=== PATIENT | female | born 1980 | race Caucasian/White ===

== ENCOUNTER 2016-10-17 09:41 | Inpatient (IN) | payer BC ==
[~2016-10-17] VITALS: Ht 162.6 cm; Wt 82.6 kg
--- NOTE | 2016-10-17 09:59 | EKG ---
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
[2016-10-17] MEDS: NITROGLYCERIN SUBLINGUAL 0.4 MG BOTTLE OF 25. SL PRN ×2 (10:30→10:44)
[2016-10-17 10:59] LABS: BILIRUBIN,URINE NEGATIVE (NEG); GLUCOSE,URINE NEGATIVE (NEG); NITRITE,URINE NEGATIVE (NEG); PH,URINE 7.5; PROTEIN,URINE NEGATIVE (NEG-TRACE); UROBILINOGEN,URINE 0.2 mg/dL (0.2 mg/dL)
[2016-10-17 11:02] LABS: BASO % 1 % (0-3); EOS % 2 % (0-3); HEMOGLOBIN 13.9 g/dL (12.0-15.5); LYMPH # 1.8 x10^3/uL (1.0-4.8); LYMPH % 29 % (24-48); MEAN CORPUSCULAR HEMOGLOBIN 28 pg (25-35); MEAN CORPUSCULAR HGB CONC 33 g/dL (31-37); MEAN CORPUSCULAR VOLUME 84 fL (79-100); MONO % 7 % (0-9); NEUT % 61 % (31-73); PLATELET COUNT 228 x10^3/uL (140-400); RED BLOOD COUNT 4.98 x10^6/uL (3.50-5.40); RED CELL DISTRIBUTION WIDTH 13.4 % (11.5-14.5); WHITE BLOOD COUNT 6.1 x10^3/uL (4.0-11.0)
[2016-10-17 11:05] LABS: BARBITURATES NEG (NEG); BENZODIAZEPINES NEG (NEG); CANNABINOIDS NEG (NEG); COCAINE NEG (NEG); METHADONE NEG (NEG); OPIATES NEG (NEG); PHENCYCLIDINE NEG (NEG)
--- NOTE | 2016-10-17 11:11 | RAD ---
Chest, 2 views, 10/17/2016: History: Chest pain, headache The heart size and pulmonary vascularity are normal. The lungs are clear. There is no evidence of pleural fluid. IMPRESSION: No acute cardiopulmonary abnormality is detected.
[2016-10-17 11:15] LABS: BACTERIA,URINE 0 /HPF (0-FEW); RBC,URINE 0 /HPF (0-2); WBC,URINE 0 /HPF (0-4)
[2016-10-17 11:15] LABS: CALCIUM 8.8 mg/dL (8.5-10.1); CREATININE 0.7 mg/dL (0.6-1.0); GFR 95.2; POTASSIUM 4.1 mmol/L (3.5-5.1)
[2016-10-17 11:22] LABS: ALBUMIN 3.8 g/dL (3.4-5.0); DIRECT BILIRUBIN 0.1 mg/dL (0.0-0.2); TOTAL BILIRUBIN 0.4 mg/dL (0.2-1.0); TOTAL PROTEIN 7.5 g/dL (6.4-8.2)
--- NOTE | 2016-10-17 11:49 | ED.ADGEN ---
Past Medical History Past Medical History: High Cholesterol, Other Additional Past Medical Histor: TMJ causes bad CALLAWAY's. Past Surgical History: Other Additional Past Surgical Histo: Laproscopy. Additional Information: Quit smoking at age 21. Was smoking about 1 PPD at that time. Alcohol Use: Occasionally Drug Use: None Adult General Chief Complaint Chief Complaint: CHEST PAIN HPI HPI Patient is a 36 year old woman, history of TMJ, headache, who presents emergency department from an urgent care clinic with a complaint of chest pain intermittently over the past 2 weeks. Patient states had one to set of chest pain 2 weeks ago, she began experiencing a chest pressure associated with lightheadedness and shortness of breath after going to the store. She states that she stood up from a lying position and felt extremely lightheaded.. She states that last about 15 minutes before resolving, she had some nausea but no vomiting during that time. She states that this pain occurred again this morning , similar in nature, prompting her visit to the urgent care center, where she was referred to the emergency department for additional evaluation. She denies any recent injuries, states that it feels a pressure on her chest, although she does have worsening of the pain with deep inspiration, denies any weakness, numbness or tingling, any injuries, any similar symptoms previously, any travel or surgery, and history of DVT or PE in herself or family members. There is a family history of premature cardiac disease, beginning at age 30. Patient has not taken any medication for pain prior to coming to the ED. Denies any drugs, alcohol or cigarettes. Review of Systems Review of Systems Constitutional: Denies fever or chills. [] Eyes: Denies change in visual acuity. [] HENT: Denies nasal congestion or sore throat. [] Respiratory: Denies cough or shortness of breath. [] Cardiovascular: Anterior chest pain, described as a chest pressure, sharp, is respirophasic. No edema. GI: Denies abdominal pain, nausea, vomiting, bloody stools or diarrhea. [] : Denies dysuria. [] Musculoskeletal: Denies back pain or joint pain. [] Integument: Denies rash. [] Neurologic: Denies headache, focal weakness or sensory changes. [] Endocrine: Denies polyuria or polydipsia. [] Lymphatic: Denies swollen glands. [] Psychiatric: Denies depression or anxiety. [] Current Medications Current Medications Current Medications Medications (Trade) Dose Ordered Sig/Flavio Start Time Stop Time Status Last Admin Dose Admin Nitroglycerin (Nitrostat) 0.4 mg PRN Q5MIN PRN 10/17/16 10:00 10/18/16 09:59 10/17/16 10:44 0.4 MG Allergies Allergies Allergies Coded Allergies Type Severity Reaction Last Updated Verified levofloxacin Allergy Severe SWELLING ON TONGUE 10/17/16 Yes nitrofurantoin Allergy Severe SWELLING ON TONGUE 10/17/16 Yes Sulfa (Sulfonamide Antibiotics) Allergy Intermediate Unknown 10/17/16 Yes adhesive tape Allergy Intermediate SKIN PUFFY IF ON FOR LONG TIME 10/17/16 Yes Physical Exam Physical Exam Constitutional: Well developed, well nourished, no acute distress, non-toxic appearance. [] HENT: Normocephalic, atraumatic, bilateral external ears normal, oropharynx moist, no oral exudates, nose normal. [] Eyes: PERRLA, EOMI, conjunctiva normal, no discharge. [] Neck: Normal range of motion, no tenderness, supple, no stridor. [] Cardiovascular:Heart rate regular rhythm, no murmur [] Lungs & Thorax: Bilateral breath sounds clear to auscultation [] Abdomen: Bowel sounds normal, soft, no tenderness, no masses, no pulsatile masses. [] Skin: Warm, dry, no erythema, no rash. [] Back: No tenderness, no CVA tenderness. [] Extremities: No tenderness, no cyanosis, no clubbing, ROM intact, no edema. [] Neurologic: Alert and oriented X 3, normal motor function, normal sensory function, no focal deficits noted. [] Psychologic: Affect normal, judgement normal, mood normal. [] Current Patient Data Vital Signs Vital Signs Date Time Temp Pulse Resp B/P (MAP) Pulse Ox O2 Delivery O2 Flow Rate FiO2 10/17/16 13:00 78 16 110/68 (82) 99 10/17/16 10:30 Room Air 10/17/16 10:05 98.2 98.2 Lab Values Laboratory Tests Test 10/17/16 10:00 10/17/16 10:40 10/17/16 12:35 Urine Collection Type Void Urine Color Yellow Urine Clarity Clear Urine pH 7.5 Urine Specific [place] 1.010 Urine Protein Negative mg/dL (NEG-TRACE) Urine Glucose (UA) Negative mg/dL (NEG) Urine Ketones (Stick) Negative mg/dL (NEG) Urine Blood Negative (NEG) Urine Nitrite Negative (NEG) Urine Bilirubin Negative (NEG) Urine Urobilinogen Dipstick 0.2 mg/dL (0.2 mg/dL) Urine Leukocyte Esterase Trace (NEG) Urine RBC 0 /HPF (0-2) Urine WBC 0 /HPF (0-4) Urine Bacteria 0 /HPF (0-FEW) Urine Opiates Screen Neg (NEG) Urine Methadone Screen Neg (NEG) Urine Barbiturates Neg (NEG) Urine Phencyclidine Screen Neg (NEG) Urine Amphetamine/Methamphetamine Neg (NEG) Urine Benzodiazepines Screen Neg (NEG) Urine Cocaine Screen Neg (NEG) Urine Cannabinoids Screen Neg (NEG) Urine Ethyl Alcohol Neg (NEG) White Blood Count 6.1 x10^3/uL (4.0-11.0) Red Blood Count 4.98 x10^6/uL (3.50-5.40) Hemoglobin 13.9 g/dL (12.0-15.5) Hematocrit 42.0 % (36.0-47.0) Mean Corpuscular Volume 84 fL (79-100) Mean Corpuscular Hemoglobin 28 pg (25-35) Mean Corpuscular Hemoglobin Concent 33 g/dL (31-37) Red Cell Distribution Width 13.4 % (11.5-14.5) Platelet Count 228 x10^3/uL (140-400) Neutrophils (%) (Auto) 61 % (31-73) Lymphocytes (%) (Auto) 29 % (24-48) Monocytes (%) (Auto) 7 % (0-9) Eosinophils (%) (Auto) 2 % (0-3) Basophils (%) (Auto) 1 % (0-3) Neutrophils # (Auto) 3.7 x10^3uL (1.8-7.7) Lymphocytes # (Auto) 1.8 x10^3/uL (1.0-4.8) Monocytes # (Auto) 0.4 x10^3/uL (0.0-1.1) Eosinophils # (Auto) 0.1 x10^3/uL (0.0-0.7) Basophils # (Auto) 0.0 x10^3/uL (0.0-0.2) Sodium Level 143 mmol/L (136-145) Potassium Level 4.1 mmol/L (3.5-5.1) Chloride Level 106 mmol/L (98-107) Carbon Dioxide Level 29 mmol/L (21-32) Anion Gap 8 (6-14) Blood Urea Nitrogen 11 mg/dL (7-20) Creatinine 0.7 mg/dL (0.6-1.0) Estimated GFR (Cockcroft-Gault) 95.2 Glucose Level 87 mg/dL (70-99) Calcium Level 8.8 mg/dL (8.5-10.1) Total Bilirubin 0.4 mg/dL (0.2-1.0) Direct Bilirubin 0.1 mg/dL (0.0-0.2) Aspartate Amino Transferase (AST) 16 U/L (15-37) Alanine Aminotransferase (ALT) 23 U/L (14-59) Alkaline Phosphatase 59 U/L (46-116) Troponin I Quantitative < 0.017 ng/mL (0.000-0.055) ZT-Gnb-L-Type Natriuretic Peptide 32 pg/mL (0-124) Total Protein 7.5 g/dL (6.4-8.2) Albumin 3.8 g/dL (3.4-5.0) Lipase 101 U/L (73-393) D-Dimer (Guerita) < 0.27 ug/mlFEU Laboratory Tests 10/17/16 10:40 Laboratory Tests 10/17/16 10:40 EKG EKG EC: Sinus rhythm, heart rate 76 beats minute, QTC of 423, [place] of 148, QRS of 84, no ST elevations or depressions, no evidence of acute ST abnormalities. As interpreted by me. [] Radiology/Procedures Radiology/Procedures [][facility] [address] [place] [address] IMAGING REPORT Signed PATIENT: MARBIN MICHAUD ACCOUNT: [id number] : 1980 LOCATION: ER AGE: 36 SEX: F EXAM STATUS: REG ER ORD. PHYSICIAN: KEM DESOUZA DO REASON: CP and headache x 1 week PROCEDURE: CHEST PA & LATERAL Chest, 2 views, 10/17/2016: History: Chest pain, headache The heart size and pulmonary vascularity are normal. The lungs are clear. There is no evidence of pleural fluid. IMPRESSION: No acute cardiopulmonary abnormality is detected. DICTATED and SIGNED BY: CALLI FISHER MD DATE: 10/17/16 1108 CC: GRIFFIN WALSH; KEM DESOUZA DO ~ Course & Med Decision Making Course & Med Decision Making Pertinent Labs and Imaging studies reviewed. (See chart for details) Patient is PERC give with a negative d-dimer, her additional imaging and laboratory studies in the emergency department, along with her ECG did not reveal evidence of acute abnormality, however based with her family history of heart disease in her father age 30, with multiple MIs, and patient's recurrent symptoms, after discussion patient is agreeable for a cardiac rule out and evaluation by cardiology. Repeat ECG is unchanged. Findings as above discussed with Dr. Bahena of internal medicine, patient accepted to her service as a full admission for a chest pain rule out ACS, with consultation placed for cardiology. Patient resting comfortably, sinus rhythm on the monitor, transfer to floor without issue. Dragon Disclaimer Dragon Disclaimer This electronic medical record was generated, in whole or in part, using a voice recognition dictation system. Departure Impression: Primary Impression: Chest pain Disposition: ADMITTED INPATIENT Admitting Physician: Javier Bahena Condition: IMPROVED KEM DESOUZA DO October 17, 2016 11:49
[2016-10-17] MEDS ORDERED: NITROGLYCERIN SUBLINGUAL 0.4 MG BOTTLE OF 25. SL PRN (14:00)
[2016-10-17] MEDS ORDERED: ACETAMINOPHEN 325 MG TABLET. PO PRN ×2 (14:00→15:15)
[2016-10-17] MEDS ORDERED: ONDANSETRON PF 4 MG/2 ML VIAL. IV PRN ×2 (14:00→15:15)
--- NOTE | 2016-10-17 14:50 | PDOC2 ---
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 Reports that his started about 2 weeks ago suddenly describing it as sharp pain that starts from left chest then spreads across the lateral side of her chest. With this she could not take a deep breath and actually hurts more when she does it. With the pain she felt nauseated and also had some episodes of lightheadedness. After which this has been intermittent and became worse again last night when the pain woke her up close to midnight. She has not been able to rest since then. She did felt SOA at that time. She finally decided to come in to urgent care then was recommended to come to ED and be evaluated further. She still has chest discomfort which mainly most severe to LUQ of her left breast when palpated and also her left shoulder ROM is limited with the pain. Her pain did get a little better after NTG but still remains. She does have occasional heartburn but repeatedly points out that this is not her usual heartburn. Presently she does not take any routine medications. She denies any CAD, VTE, falls, MVA or any recent injury. No prior weekend house cleaning. No significant neck issues. However she does have strong family hx of premature CAD. She is also positive for PIH, HLP noted during her . Denies any routine NSAID use. Again she still has left chest pain and this is reproducible with palpation, AROM to left shoulder and positional changes. PAST MEDICAL HISTORY Cardiovascular: HTN (PIH), Hyperlipidemia (during her ) CENTRAL NERVOUS SYSTEM: Other (No pertinent history) GI: GERD Heme/Onc: No pertinent hx Hepatobiliary: No pertinent hx Psych: No pertinent hx Musculoskeletal: Other (left shoulder pain) Rheumatologic: No pertinent hx Infectious disease: No pertinent hx ENT: Allergic Rhinitis, Other (TMJ; subconjucntival hemorrhage) Renal/: UTI, Other (ovarian cysts) Endocrine: No pertinent hx Dermatology: No pertinent hx Grav: 2 Para: 2 PAST SURGICAL HISTORY Past Surgical History: Other (right foot surgery; laparoscopic surgery of the ovaries due to cystic issues) FAMILY HISTORY Family History: Coronary Artery Disease (father in his 30s then SCD at 50s also her father's dad young from CAD) SOCIAL HISTORY Smoke: No (4pk yr quit at 21 yo) ALCOHOL: none Drugs: None Lives: with Family CURRENT MEDICATIONS CURRENT MEDICATIONS Current Medications Medications (Trade) Dose Ordered Sig/Flavio Route PRN Reason Start Time Stop Time Status Last Admin Dose Admin Nitroglycerin (Nitrostat) 0.4 mg PRN Q5MIN PRN SL CP RATING > 1/10 10/17/16 10:00 10/18/16 09:59 10/17/16 10:44 ALLERGIES ALLERGIES: Coded Allergies: levofloxacin (Verified Allergy, Severe, SWELLING ON TONGUE, 10/17/16) nitrofurantoin (Verified Allergy, Severe, SWELLING ON TONGUE, 10/17/16) Sulfa (Sulfonamide Antibiotics) (Verified Allergy, Intermediate, Unknown, 10/17/16) adhesive tape (Verified Allergy, Intermediate, SKIN PUFFY IF ON FOR LONG TIME, 10/17/16) BAND AID ROS Review of System 14 point ROS evaluated with pertinent positives noted per HPI PHYSICAL EXAM General: Alert, Oriented X3, Cooperative, mild distress HEENT: Atraumatic, Mucous membr. moist/pink Lungs: Clear to auscultation, Normal air movement Heart: Regular rate (SR), Normal S1, Normal S2, No murmurs Abdomen: Soft, No tenderness Extremities: No cyanosis, No edema Skin: No breakdown, No significant lesion Neuro: Normal speech, Sensation intact Psych/Mental Status: Mental status NL, Mood NL MUSCULOSKELETAL: Other (limited ROM to left shoulder) VITALS VITALS Vital Signs Date Time Temp Pulse Resp B/P (MAP) Pulse Ox O2 Delivery O2 Flow Rate FiO2 10/17/16 14:00 80 14 113/59 (77) 98 10/17/16 10:30 Room Air 10/17/16 10:05 98.2 98.2 LABS Lab: Laboratory Tests Test 10/17/16 10:00 10/17/16 10:40 10/17/16 12:35 Urine Collection Type Void Urine Color Yellow Urine Clarity Clear Urine pH 7.5 Urine Specific [place] 1.010 Urine Protein Negative mg/dL (NEG-TRACE) Urine Glucose (UA) Negative mg/dL (NEG) Urine Ketones (Stick) Negative mg/dL (NEG) Urine Blood Negative (NEG) Urine Nitrite Negative (NEG) Urine Bilirubin Negative (NEG) Urine Urobilinogen Dipstick 0.2 mg/dL (0.2 mg/dL) Urine Leukocyte Esterase Trace (NEG) Urine RBC 0 /HPF (0-2) Urine WBC 0 /HPF (0-4) Urine Bacteria 0 /HPF (0-FEW) Urine Opiates Screen Neg (NEG) Urine Methadone Screen Neg (NEG) Urine Barbiturates Neg (NEG) Urine Phencyclidine Screen Neg (NEG) Urine Amphetamine/Methamphetamine Neg (NEG) Urine Benzodiazepines Screen Neg (NEG) Urine Cocaine Screen Neg (NEG) Urine Cannabinoids Screen Neg (NEG) Urine Ethyl Alcohol Neg (NEG) White Blood Count 6.1 x10^3/uL (4.0-11.0) Red Blood Count 4.98 x10^6/uL (3.50-5.40) Hemoglobin 13.9 g/dL (12.0-15.5) Hematocrit 42.0 % (36.0-47.0) Mean Corpuscular Volume 84 fL (79-100) Mean Corpuscular Hemoglobin 28 pg (25-35) Mean Corpuscular Hemoglobin Concent 33 g/dL (31-37) Red Cell Distribution Width 13.4 % (11.5-14.5) Platelet Count 228 x10^3/uL (140-400) Neutrophils (%) (Auto) 61 % (31-73) Lymphocytes (%) (Auto) 29 % (24-48) Monocytes (%) (Auto) 7 % (0-9) Eosinophils (%) (Auto) 2 % (0-3) Basophils (%) (Auto) 1 % (0-3) Neutrophils # (Auto) 3.7 x10^3uL (1.8-7.7) Lymphocytes # (Auto) 1.8 x10^3/uL (1.0-4.8) Monocytes # (Auto) 0.4 x10^3/uL (0.0-1.1) Eosinophils # (Auto) 0.1 x10^3/uL (0.0-0.7) Basophils # (Auto) 0.0 x10^3/uL (0.0-0.2) Sodium Level 143 mmol/L (136-145) Potassium Level 4.1 mmol/L (3.5-5.1) Chloride Level 106 mmol/L (98-107) Carbon Dioxide Level 29 mmol/L (21-32) Anion Gap 8 (6-14) Blood Urea Nitrogen 11 mg/dL (7-20) Creatinine 0.7 mg/dL (0.6-1.0) Estimated GFR (Cockcroft-Gault) 95.2 Glucose Level 87 mg/dL (70-99) Calcium Level 8.8 mg/dL (8.5-10.1) Total Bilirubin 0.4 mg/dL (0.2-1.0) Direct Bilirubin 0.1 mg/dL (0.0-0.2) Aspartate Amino Transf (AST/SGOT) 16 U/L (15-37) Alanine Aminotransferase (ALT/SGPT) 23 U/L (14-59) Alkaline Phosphatase 59 U/L (46-116) Troponin I Quantitative < 0.017 ng/mL (0.000-0.055) DI-Fwg-M-Type Natriuretic Peptide 32 pg/mL (0-124) Total Protein 7.5 g/dL (6.4-8.2) Albumin 3.8 g/dL (3.4-5.0) Lipase 101 U/L (73-393) D-Dimer (Guerita) < 0.27 ug/mlFEU ASSESSMENT/PLAN ASSESSMENT/PLAN 1. Atypical chest pain: initial troponin normal. EKG SR without acute changes. Reproducible. Likely MSK. Tox screen neg and lipase/DDIMER normal. 2. Strong family hx of premature CAD: father at 30s and grandfather with father SCD at 50s 3. HLP: noted about 2 yrs ago, unmedicated 4. Hx of PIH: from her 2nd , no gestational DM. 5. Past tobaccoism: quit 15 yrs ago 4 pk yr. 6. Hx of GERD Recommendations 1. Lidocaine patch to site. Start on PPI 2. Urine preg testing. lipid panel, and CK 3. Continue to trend troponin and will repeat EKG in AM. 4. Baseline TTE 5. NPO at ND, await diagnostics and will note if further cardiac workup is warranted. Problems: SAMIRA BARRY MD 10/17/16 3032: CARDIAC CONSULT ALLERGIES ALLERGIES: Coded Allergies: levofloxacin (Verified Allergy, Severe, SWELLING ON TONGUE, 10/17/16) nitrofurantoin (Verified Allergy, Severe, SWELLING ON TONGUE, 10/17/16) Sulfa (Sulfonamide Antibiotics) (Verified Allergy, Intermediate, Unknown, 10/17/16) adhesive tape (Verified Allergy, Intermediate, SKIN PUFFY IF ON FOR LONG TIME, 10/17/16) BAND AID ASSESSMENT/PLAN ASSESSMENT/PLAN Pt. seen and examined. 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 36 yo woman with family hx of cad, current symptoms unlikely to be cardiac. Possible pleuritis. Will plan for treadmill stress tomorrow. Thanks for consult. Problems: MINOR BEAUCHAMP APRN October 17, 2016 14:50 SAMIRA BARRY MD October 17, 2016 22:18
--- NOTE | 2016-10-17 14:54 | PDOC1 ---
History and Physical Date of Admission Date of Admission Identification/Chief Complaint Chief Complaint chest pain Problems: Source Source: Chart review, Patient History of Present Illness History of Present Illness HPI Patient is a 36 year old woman, history of TMJ, headache, comes for chest pain for 1 week. She was doing some moderate exercise in the gym 1 week ago. She started to feel some left sharp pain, no radiation, sharp, with sob after back from a grocery 1 week ago, with some nausea. then she has had it intermittently. She woke up last night with left pressure chest pain, sob, severe, with mild + tenderness, came to ER. No fever, chills, cough, vomiting, denies injury, saying acid reflux, but said this is different. + family history of CAD. Past Medical History Past Medical History none Past Surgical History Past Surgical History: No pertinent history Family History Family History: Coronary Artery Disease Social History Smoke: Quit (quit at 21yo) ALCOHOL: social Drugs: None Current Medications Current Medications Current Medications Medications (Trade) Dose Ordered Sig/Flavio Start Time Stop Time Status Last Admin Dose Admin Acetaminophen (Tylenol) 650 mg PRN Q4HRS PRN 10/17/16 14:00 10/18/16 13:59 Nitroglycerin (Nitrostat) 0.4 mg PRN Q5MIN PRN 10/17/16 14:00 10/18/16 13:59 Ondansetron HCl (Zofran) 4 mg PRN Q8HRS PRN 10/17/16 14:00 10/18/16 13:59 Allergies Allergies Allergies Coded Allergies Type Severity Reaction Last Updated Verified levofloxacin Allergy Severe SWELLING ON TONGUE 10/17/16 Yes nitrofurantoin Allergy Severe SWELLING ON TONGUE 10/17/16 Yes Sulfa (Sulfonamide Antibiotics) Allergy Intermediate Unknown 10/17/16 Yes adhesive tape Allergy Intermediate SKIN PUFFY IF ON FOR LONG TIME 10/17/16 Yes ROS Review of System CONSTITUTIONAL: No fever or chills EYES: No recent changes SKIN: No rash or itching CARDIOVASCULAR: No chest pain, syncope, palpitations, or edema RESPIRATORY: No SOB or cough GASTROINTESTINAL: No nausea, vomiting or abdominal pain NEUROLOGICAL: No headaches or weakness ENDOCRINE: No cold or heat intolerance GENITOURINARY: No urgency or frequency of urination MUSCULOSKELETAL: No back pain or joint pain LYMPHATICS: No enlarged lymph nodes PSYCHIATRIC: No anxiety or depression Physical Exam Physical Exam GEN.: No apparent distress. Alert and oriented. HEENT: Head is normocephalic, atraumatic NECK: Supple. LUNGS: Clear to auscultation. mild chest wall tenderness. HEART: RRR, S1, S2 present. Peripheral pulses intact ABDOMEN: Soft, nontender. Positive bowel sounds. EXTREMITIES: Without any cyanosis. NEUROLOGIC: Normal speech, normal tone PSYCHIATRIC: Normal affect, normal mood. SKIN: No ulcerations Vitals Vitals Vital Signs Date Time Temp Pulse Resp B/P (MAP) Pulse Ox O2 Delivery O2 Flow Rate FiO2 10/17/16 14:00 80 14 113/59 (77) 98 10/17/16 10:30 Room Air 10/17/16 10:05 98.2 98.2 Labs Labs Laboratory Tests Test 10/17/16 10:00 10/17/16 10:40 10/17/16 12:35 Urine Collection Type Void Urine Color Yellow Urine Clarity Clear Urine pH 7.5 Urine Specific [place] 1.010 Urine Protein Negative mg/dL (NEG-TRACE) Urine Glucose (UA) Negative mg/dL (NEG) Urine Ketones (Stick) Negative mg/dL (NEG) Urine Blood Negative (NEG) Urine Nitrite Negative (NEG) Urine Bilirubin Negative (NEG) Urine Urobilinogen Dipstick 0.2 mg/dL (0.2 mg/dL) Urine Leukocyte Esterase Trace (NEG) Urine RBC 0 /HPF (0-2) Urine WBC 0 /HPF (0-4) Urine Bacteria 0 /HPF (0-FEW) Urine Opiates Screen Neg (NEG) Urine Methadone Screen Neg (NEG) Urine Barbiturates Neg (NEG) Urine Phencyclidine Screen Neg (NEG) Urine Amphetamine/Methamphetamine Neg (NEG) Urine Benzodiazepines Screen Neg (NEG) Urine Cocaine Screen Neg (NEG) Urine Cannabinoids Screen Neg (NEG) Urine Ethyl Alcohol Neg (NEG) White Blood Count 6.1 x10^3/uL (4.0-11.0) Red Blood Count 4.98 x10^6/uL (3.50-5.40) Hemoglobin 13.9 g/dL (12.0-15.5) Hematocrit 42.0 % (36.0-47.0) Mean Corpuscular Volume 84 fL (79-100) Mean Corpuscular Hemoglobin 28 pg (25-35) Mean Corpuscular Hemoglobin Concent 33 g/dL (31-37) Red Cell Distribution Width 13.4 % (11.5-14.5) Platelet Count 228 x10^3/uL (140-400) Neutrophils (%) (Auto) 61 % (31-73) Lymphocytes (%) (Auto) 29 % (24-48) Monocytes (%) (Auto) 7 % (0-9) Eosinophils (%) (Auto) 2 % (0-3) Basophils (%) (Auto) 1 % (0-3) Neutrophils # (Auto) 3.7 x10^3uL (1.8-7.7) Lymphocytes # (Auto) 1.8 x10^3/uL (1.0-4.8) Monocytes # (Auto) 0.4 x10^3/uL (0.0-1.1) Eosinophils # (Auto) 0.1 x10^3/uL (0.0-0.7) Basophils # (Auto) 0.0 x10^3/uL (0.0-0.2) Sodium Level 143 mmol/L (136-145) Potassium Level 4.1 mmol/L (3.5-5.1) Chloride Level 106 mmol/L (98-107) Carbon Dioxide Level 29 mmol/L (21-32) Anion Gap 8 (6-14) Blood Urea Nitrogen 11 mg/dL (7-20) Creatinine 0.7 mg/dL (0.6-1.0) Estimated GFR (Cockcroft-Gault) 95.2 Glucose Level 87 mg/dL (70-99) Calcium Level 8.8 mg/dL (8.5-10.1) Total Bilirubin 0.4 mg/dL (0.2-1.0) Direct Bilirubin 0.1 mg/dL (0.0-0.2) Aspartate Amino Transf (AST/SGOT) 16 U/L (15-37) Alanine Aminotransferase (ALT/SGPT) 23 U/L (14-59) Alkaline Phosphatase 59 U/L (46-116) Troponin I Quantitative < 0.017 ng/mL (0.000-0.055) YO-Gkv-T-Type Natriuretic Peptide 32 pg/mL (0-124) Total Protein 7.5 g/dL (6.4-8.2) Albumin 3.8 g/dL (3.4-5.0) Lipase 101 U/L (73-393) D-Dimer (Guerita) < 0.27 ug/mlFEU Laboratory Tests Test 10/17/16 10:00 10/17/16 10:40 10/17/16 12:35 Urine Collection Type Void Urine Color Yellow Urine Clarity Clear Urine pH 7.5 Urine Specific [place] 1.010 Urine Protein Negative mg/dL (NEG-TRACE) Urine Glucose (UA) Negative mg/dL (NEG) Urine Ketones (Stick) Negative mg/dL (NEG) Urine Blood Negative (NEG) Urine Nitrite Negative (NEG) Urine Bilirubin Negative (NEG) Urine Urobilinogen Dipstick 0.2 mg/dL (0.2 mg/dL) Urine Leukocyte Esterase Trace (NEG) Urine RBC 0 /HPF (0-2) Urine WBC 0 /HPF (0-4) Urine Bacteria 0 /HPF (0-FEW) Urine Opiates Screen Neg (NEG) Urine Methadone Screen Neg (NEG) Urine Barbiturates Neg (NEG) Urine Phencyclidine Screen Neg (NEG) Urine Amphetamine/Methamphetamine Neg (NEG) Urine Benzodiazepines Screen Neg (NEG) Urine Cocaine Screen Neg (NEG) Urine Cannabinoids Screen Neg (NEG) Urine Ethyl Alcohol Neg (NEG) White Blood Count 6.1 x10^3/uL (4.0-11.0) Red Blood Count 4.98 x10^6/uL (3.50-5.40) Hemoglobin 13.9 g/dL (12.0-15.5) Hematocrit 42.0 % (36.0-47.0) Mean Corpuscular Volume 84 fL (79-100) Mean Corpuscular Hemoglobin 28 pg (25-35) Mean Corpuscular Hemoglobin Concent 33 g/dL (31-37) Red Cell Distribution Width 13.4 % (11.5-14.5) Platelet Count 228 x10^3/uL (140-400) Neutrophils (%) (Auto) 61 % (31-73) Lymphocytes (%) (Auto) 29 % (24-48) Monocytes (%) (Auto) 7 % (0-9) Eosinophils (%) (Auto) 2 % (0-3) Basophils (%) (Auto) 1 % (0-3) Neutrophils # (Auto) 3.7 x10^3uL (1.8-7.7) Lymphocytes # (Auto) 1.8 x10^3/uL (1.0-4.8) Monocytes # (Auto) 0.4 x10^3/uL (0.0-1.1) Eosinophils # (Auto) 0.1 x10^3/uL (0.0-0.7) Basophils # (Auto) 0.0 x10^3/uL (0.0-0.2) Sodium Level 143 mmol/L (136-145) Potassium Level 4.1 mmol/L (3.5-5.1) Chloride Level 106 mmol/L (98-107) Carbon Dioxide Level 29 mmol/L (21-32) Anion Gap 8 (6-14) Blood Urea Nitrogen 11 mg/dL (7-20) Creatinine 0.7 mg/dL (0.6-1.0) Estimated GFR (Cockcroft-Gault) 95.2 Glucose Level 87 mg/dL (70-99) Calcium Level 8.8 mg/dL (8.5-10.1) Total Bilirubin 0.4 mg/dL (0.2-1.0) Direct Bilirubin 0.1 mg/dL (0.0-0.2) Aspartate Amino Transf (AST/SGOT) 16 U/L (15-37) Alanine Aminotransferase (ALT/SGPT) 23 U/L (14-59) Alkaline Phosphatase 59 U/L (46-116) Troponin I Quantitative < 0.017 ng/mL (0.000-0.055) AV-Vtm-J-Type Natriuretic Peptide 32 pg/mL (0-124) Total Protein 7.5 g/dL (6.4-8.2) Albumin 3.8 g/dL (3.4-5.0) Lipase 101 U/L (73-393) D-Dimer (Guerita) < 0.27 ug/mlFEU VTE Prophylaxis Ordered VTE Prophylaxis Devices: Yes VTE Pharmacological Prophylaxi: Yes Assessment/Plan Assessment/Plan 1. chest pain, need to rule out unstable angina vs. muscular pain 2. ?HLD 3. obesity plan; card consult check tsh, lipid panel. cycle CE echo dvt ppx explained to family at bedside about the possible reasons for chest pain. MAIKEL KUNZ MD October 17, 2016 14:53
[2016-10-17] MEDS ORDERED: traMADol 50 MG TABLET PO PRN (15:15)
[2016-10-17 15:50] VITALS: BP 112/71
--- NOTE | 2016-10-17 16:47 | CARD ---
APPROVED REPORT EXAM: Two-dimensional and M-mode echocardiogram with Doppler and color Doppler. Other Information Quality : GoodHR: 81bpm Rhythm : NSR INDICATION Chest Pain 2D DIMENSIONS RVDd2.1 (2.9-3.5cm)Left Atrium(2D)3.3 (1.6-4.0cm) IVSd0.7 (0.7-1.1cm)Aortic Root(2D)2.7 (2.0-3.7cm) LVDd4.9 (3.9-5.9cm)LVOT Diameter2.3 (1.8-2.4cm) PWd0.8 (0.7-1.1cm)LVDs3.3 (2.5-4.0cm) FS (%) 32.7 %SV68.5 ml LVEF(%)60.9 (>50%) Aortic Valve AoV Peak Randall.127.5cm/sAoV VTI24.3cm AO Peak GR.6.5mmHgLVOT Peak Randall.97.9cm/s AO Mean GR.4mmHgAVA (VMAX)3.21cm2 Mitral Valve MV E Kftrtorr40.1cm/sMV E Peak Gr.3mmHg MV DECEL [id number] A Tzmigdwp58.4cm/s MV E Mean Gr.1mmHgE/A Ratio1.4 MV A [id number] Pulmonary Valve PV Peak Hvoelsgu95.8cm/s Pulmonary Vein S1 Slzijksb40.1cm/sD2 Ehneujbm28.3cm/s PVa [id number] LEFT VENTRICLE The left ventricle is normal size. There is normal left ventricular wall thickness. The left ventricu lar systolic function is normal and the ejection fraction is within normal range. The Ejection Fracti on is 55-60%. There is normal LV segmental wall motion. The left ventricular diastolic function and f illing is normal for age. RIGHT VENTRICLE The right ventricle is normal size. There is normal right ventricular wall thickness. The right ventr icular systolic function is normal. ATRIA The left atrium size is normal. The right atrium size is normal. The interatrial septum is intact wit h no evidence for an atrial septal defect or patent foramen ovale as noted on 2-D or Doppler imaging. AORTIC VALVE The aortic valve is normal in structure and function. Doppler and Color Flow revealed no significant aortic regurgitation. There is no significant aortic valvular stenosis. MITRAL VALVE The mitral valve is normal in structure and function. There is no evidence of mitral valve prolapse. There is no mitral valve stenosis. Doppler and Color Flow revealed trace mitral regurgitation. TRICUSPID VALVE Doppler and Color Flow revealed no tricuspid valve regurgitation noted. Unable to determine pulmonary artery pressure at exam time. PULMONIC VALVE Doppler and Color Flow revealed trace pulmonic valvular regurgitation. There is no pulmonic valvular stenosis. GREAT VESSELS The aortic root is normal in size. The ascending aorta is normal in size. The pulmonary artery is nor mal. The IVC is normal in size and collapses >50% with inspiration. PERICARDIAL EFFUSION There is no evidence of significant pericardial effusion. Critical Notification Critical Value: No <Conclusion> The left ventricular systolic function is normal and the ejection fraction is within normal range. Th e Ejection Fraction is 55-60%. There is normal LV segmental wall motion.
[2016-10-17] MEDS: LIDOCAINE (700MG/PATCH) PATCH. TD SCH (17:43)
[2016-10-17] MEDS: ENOXAPARIN 40 MG/0.4 ML SYRINGE. SQ SCH (17:43)
--- NOTE | 2016-10-17 19:35 | ACF ---
Admission Forms Criteria CARDIOLOGY GRG Clinical Indications for Admission to Inpatient Care ( Place 'X' for any and all applicable criteria): Hospital admission is needed for appropriate care of the patient because of ANY ONE of the following (1): [ ] I. Hemodynamic instability as indicated by ALL of the following (1)(2)(3) (4)(5) [ ]a) Vital signs or other findings not as expected for chronic patient condition or baseline [ ]b) Instability indicated by ANY ONE of the following: [ ]i) Hypotension [ ]ii) Symptomatic Tachycardia unresponsive to treatment ( e.g., analgesia, fluids, sedation as indicated) [ ]iii) Inadequate perfusion indicated by ANY ONE of the following: [ ] 1) Lactic acidosis (> 2 mmol/L) [ ] 2) New abnormal capillary refill (> 3 seconds) [ ] 3) Reduced urine output [ ] 4) New altered mental status [ ]iv) Orthostatic vital sign changes unresponsive to treatment (e.g., fluids) [ ]v) IV inotropic or vasopressor medication required to maintain adequate blood pressure or perfusion [ ] II. Severe heart failure as indicated by ANY ONE of the following(17)(18) [ ]a) Respiratory distress [ ]b) Hypotension [ ]c) Anasarca (refractory to outpatient therapy) [ ]d) Cardiac arrhythmias of immediate concern [ ]e) Myocardial ischemia [ ] III. Cardiac arrhythmias or findings of immediate concern indicated by ANY ONE of the following (19)(20): [ ] a) Heart rhythms that are inherently dangerous or unstable indicated by ANY ONE of the following (21)(22)(23): [ ] i) Resuscitated ventricular fibrillation or cardiac arrest [ ] ii) Ventricular escape rhythm [ ] iii) Sustained ventricular tachycardia (30 seconds or more of ventricular rhythm at greater than 100 beats per minute) [ ] iv) Nonsustained ventricular tachycardia and ANY ONE of the following: [ ] 1) Suspected cardiac ischemia as cause or consequence of ventricular tachycardia [ ] 2) In setting of acute myocarditis [ ] b) Unstable cardiac conduction defects indicated by ANY ONE of the following(23)(24)(25) [ ] i) Type II second-degree atrioventricular block [ ]ii) Third-degree atrioventricular block [ ]iii) New-onset left bundle branch block with suspected myocardial ischemia [ ]c) Any heart rhythm and ANY ONE of the following (21)(22)(26)(27) (28) [ ] i) Continuous long-term ECG monitoring needed (e.g., initiation of drug requiring monitoring for more than 24 hours) [ ] ii) Patient has automatic implanted cardioverter defibrillator that is repeatedly firing, malfunctioning, or in need of immediate adjustment of settings beyond the scope of ambulatory or observation care [ ]d) Heart rhythms of concern due to ANY ONE of the following: [ ] i) Hypotension [ ] ii) Respiratory distress [ ] iii) Association with other significant symptoms (e.g., bradycardia with syncope or ongoing dizziness, supraventricular tachycardia with chest pain (14)(15)(17) [ ] IV. Monitoring for cardiac contusion beyond the scope of observation care needed [A](30)(31)(32) [ ] V. Surgical or device complication (e.g., valve replacement complication , pacemaker dysfunction) (35)(41)(44)(45)(46) [ ] . Inpatient palliative care needed. [B](49) Also use Inpatient Palliative Care Criteria [ ] VII. Nonbacterial thrombotic (marantic) endocarditis (36)(43)(47)(48) [X] VIII. Cardiology condition, symptom, or finding for which emergency and observation care has failed or are not considered appropriate. [ ] IX. Acute valvular disease requiring inpatient as indicated by ANY ONE of the following (41) [ ]a) Acute valvular regurgitation (42) [ ]b) Noninfectious valvulitis (43) [ ]c) Obstructive valve thrombosis [ ]d) Paravalvular leak [ ]e) Other significant valvular disorder remaining after emergency or observation level of care (as appropriate) [ ]X. Pericardial disease requiring inpatient treatment as indicated by ANY ONE of the following (33)(34)(35)(36)(37) [ ]a) Suspected tamponade (38)(39)(40) [ ]b) Hemopericardium [ ]c) Other significant pericardial disorder remaining after emergency or observation level of care (as appropriate) [ ] XI. Cardiac ischemia beyond scope of emergency and observation care. [ ] XII. Hypertension requiring inpatient treatment as indicated by ANY ONE of the following (6)(7)(8) [ ]a) SBP greater than 220 mm Hg or DBP greater than 120 mmHg despite treatment [ ]b) SBP greater than 140 mm Hg or DBP greater than 100 mm Hg with evidence of acute end organ damage as indicated by ANY ONE of the following [ ] i) Encephalopathy [ ] ii) Acute renal failure as indicated by new onset of ANY ONE of the following (9)(10)(11)(12)(13) [ ]1) 3-fold rise in serum creatinine from baseline [ ]2) Serum creatinine greater than 4 mg/dL ( 354 micromoles/L) with acute rise greater than 0.5 mg/dL (44.2 micromoles/L) [ ]3) Reduction of more than 75% in estimated glomerular filtration rate from baseline [ ]4) Estimated glomerular filtration rate less than 35 mL/min/1.73m2 (0.59 mL/sec/1.73m2) in child up to 18 years of age [ ]5) Cessation of urine output indicated by ALL of the following [ ]A. Adequate volume status [ ]B. Inadequate urine output as indicated by ANY ONE of the following [ ]a. Urine output less than 0.3 mL/kg/hr for 24 hours [ ]b. Anuria (urine output less than 0.1 mL/kg/hr) for 12 hours [ ] iii) Aortic dissection [ ] iv) Myocardial Ischemia [ ] v) Left ventricular heart failure [ ]vi) Retinal Hemorrhage [ ]vii) Other significant finding [ ]c) Hypertension in child requiring inpatient treatment as indicated by ALL of the following(14)(15)(16) [ ] i) Outpatient treatment not effective, not available, or not appropriate [ ]ii) SBP or DBP greater than 95th percentile for age [ ]iii) Evidence of acute end organ damage as indicated by ANY ONE of the following [ ]1) Altered mental status [ ]2) Acute renal failure as indicated by new onset of ANY ONE of the following(9)(10)(11)(12)(13) [ ]A. 3-fold rise in serum creatinine from baseline [ ]B. Serum creatinine greater than 4 mg/dL (354 micromoles/L) with acute rise greater than 0.5 mg/dL (44.2 micromoles/L) [ ]C. Reduction of more than 75% in estimated glomerular filtration rate from baseline [ ]D. Estimated glomerular filtration rate less than 35 mL/min/1.73m2 (0.59 mL/sec/1.73m2) in child up to 18 years of age [ ]E. Cessation of urine output indicated by ALL of the following [ ]a. Adequate volume status [ ]b. Inadequate urine output as indicated by ANY ONE of the following [ ]i) Urine output less than 0.3 mL/kg/hr for 24 hours [ ]ii) Anuria ( urine output less than 0.1 mL/kg/hr) for 12 hours [ ]3) Severe headache [ ]4) Visual disturbance [ ]5) Retinal hemorrhage [ ]6) Other significant finding [ ]XIII. Complications of transplanted heart indicated by ANY ONE of the following(61): [ ]a) Acute graft rejection requiring inpatient management (eg, intravenous immunosuppression)(62)(63) [ ]b) Acute graft heart failure indicated by ANY ONE of the following(64): [ ]i) Hemodynamic instability [ ]ii) Cardiac arrhythmias of immediate concern [ ]iii) Pulmonary edema that is very severe (eg, mechanical ventilation needed, imminent or likely, need for 100% oxygen to keep oxygen saturation above 90%) [ ]iv) Pulmonary edema that is persistent as indicated by ALL of the following: [ ]1) New need for oxygen therapy to keep oxygen saturation above 90% (or increased FiO2 need from baseline) [ ]2) Has not improved sufficiently with emergency department or observation care IV diuretics or other heart failure treatments[E] [ ]v) Altered mental status that is severe or persistent [ ]vi) Increased creatinine (new on laboratory test) with reduction of more than 50% in estimated glomerular filtration rate from baseline [ ]vii) Progressively (ongoing) rising creatinine (known from past laboratory test) with reduction of more than 25% in estimated glomerular filtration rate from baseline [ ]viii) Acute renal failure [ ]ix) Acute peripheral ischemia (eg, examination shows pulseless, cool, mottled, or cyanotic extremity) [ ]x) Pulmonary artery catheter monitoring needed [ ]xi) Other sign or symptom of heart failure requiring inpatient treatment (ie, too severe or not responsive to outpatient and observation care treatment) [ ]c) Infection requiring inpatient management (eg, Hemodynamic instability, need for intravenous antimicrobial treatment)(66)(67)(68)(69)(70) [ ]d) Cardiac allograft vasculopathy requiring inpatient management ( eg evidence of cardiac ischemia)(71) [ ]e) Other complication of transplanted heart (eg, stroke, severe pulmonary hypertension, severe valvular dysfunction) requiring inpatient management(72) The original [facility] content created by [facility] has been revised. The portions of the content which have been revised are identified through the use of italic text or in bold, and [facility] has neither reviewed nor approved the modified material. All other unmodified content is copyright [facility]. Please see references footnoted in the original [facility] edition 2016 Admission Criteria Met?: Yes JOEL RO October 17, 2016 19:35
[2016-10-17 19:49] VITALS: BP 108/63
[2016-10-17 22:30] VITALS: BP 108/69
[2016-10-18 02:16] VITALS: BP 107/65
[2016-10-18 05:00] LABS: BASO % 1 % (0-3); EOS % 4 % (0-3); HEMATOCRIT 40.9 % (36.0-47.0); HEMOGLOBIN 13.9 g/dL (12.0-15.5); LYMPH # 2.5 x10^3/uL (1.0-4.8); LYMPH % 40 % (24-48); MEAN CORPUSCULAR HEMOGLOBIN 28 pg (25-35); MEAN CORPUSCULAR HGB CONC 34 g/dL (31-37); MEAN CORPUSCULAR VOLUME 83 fL (79-100); MONO % 10 % (0-9); NEUT % 46 % (31-73); PLATELET COUNT 236 x10^3/uL (140-400); RED CELL DISTRIBUTION WIDTH 13.5 % (11.5-14.5); WHITE BLOOD COUNT 6.3 x10^3/uL (4.0-11.0)
[2016-10-18 05:12] LABS: CALCIUM 8.3 mg/dL (8.5-10.1); CREATININE 0.8 mg/dL (0.6-1.0); GFR 81.6; POTASSIUM 3.9 mmol/L (3.5-5.1)
[2016-10-18 05:29] LABS: CHOLESTEROL/HDL RATIO 4.7
[2016-10-18] MEDS ORDERED: PANTOPRAZOLE 40 MG TABLET.DR. PO SCH (07:30)
[2016-10-18] MEDS: PANTOPRAZOLE 40 MG TABLET.DR. PO SCH (07:30)
[2016-10-18 08:00] VITALS: BP 115/63
--- NOTE | 2016-10-18 08:07 | EKG ---
[facility] [address] [place] [address] Test Date: 2016-10-18 Test Time: 07:58:47 Pat Name: MARBIN MICHAUD Department: Room: 246 1 Gender: F Marble Helper: DINAH : 1980 Requested By: MINOR BEAUCHAMP Order Number: [id number] Reading MD: Riley Matthew Measurements Intervals [place] Rate: 68 P: 138 MD: 162 QRS: 159 QRSD: 80 T: 168 QT: 372 QTc: 400 Interpretive Statements SINUS RHYTHM LIMB LEAD MISPLACEMENT Electronically Signed On 10-19-2016 15:35:14 CDT by Riley Matthew
[2016-10-18] MEDS: LIDOCAINE (700MG/PATCH) PATCH. TD SCH (09:00)
[2016-10-18 11:07] VITALS: BP 116/63
--- NOTE | 2016-10-18 11:22 | PDOC ---
MINOR BEAUCHAMP VETERINARY PATHOLOGIST 10/18/16 1122: CARDIO Progress Notes Date and Time Date of Service 10/18/2016 Time of Evaluation 1100 Subjective Subjective: No Chest Pain, No shortness of breath, No Palpitations, No Dizziness, Other (felt better overnight) Vitals Vitals Vital Signs Date Time Temp Pulse Resp B/P (MAP) Pulse Ox O2 Delivery O2 Flow Rate FiO2 10/18/16 11:07 98.3 70 18 116/63 (80) 97 Room Air 98.3 Weight Weight [ ] Input and Output Intake and Output Intake and Output 10/18/16 07:00 Intake Total 880 ml Output Total 1000 ml Balance -120 ml Intake Oral 880 ml Output Urine Total 1000 ml Laboratory Labs Laboratory Tests Test 10/17/16 12:35 10/17/16 17:45 10/18/16 03:35 D-Dimer (Guerita) < 0.27 ug/mlFEU Creatine Kinase 60 U/L (26-192) Troponin I Quantitative < 0.017 ng/mL (0.000-0.055) < 0.017 ng/mL (0.000-0.055) White Blood Count 6.3 x10^3/uL (4.0-11.0) Red Blood Count 4.90 x10^6/uL (3.50-5.40) Hemoglobin 13.9 g/dL (12.0-15.5) Hematocrit 40.9 % (36.0-47.0) Mean Corpuscular Volume 83 fL (79-100) Mean Corpuscular Hemoglobin 28 pg (25-35) Mean Corpuscular Hemoglobin Concent 34 g/dL (31-37) Red Cell Distribution Width 13.5 % (11.5-14.5) Platelet Count 236 x10^3/uL (140-400) Neutrophils (%) (Auto) 46 % (31-73) Lymphocytes (%) (Auto) 40 % (24-48) Monocytes (%) (Auto) 10 % (0-9) Eosinophils (%) (Auto) 4 % (0-3) Basophils (%) (Auto) 1 % (0-3) Neutrophils # (Auto) 2.9 x10^3uL (1.8-7.7) Lymphocytes # (Auto) 2.5 x10^3/uL (1.0-4.8) Monocytes # (Auto) 0.6 x10^3/uL (0.0-1.1) Eosinophils # (Auto) 0.3 x10^3/uL (0.0-0.7) Basophils # (Auto) 0.0 x10^3/uL (0.0-0.2) Sodium Level 142 mmol/L (136-145) Potassium Level 3.9 mmol/L (3.5-5.1) Chloride Level 105 mmol/L (98-107) Carbon Dioxide Level 26 mmol/L (21-32) Anion Gap 11 (6-14) Blood Urea Nitrogen 12 mg/dL (7-20) Creatinine 0.8 mg/dL (0.6-1.0) Estimated GFR (Cockcroft-Gault) 81.6 Glucose Level 80 mg/dL (70-99) Calcium Level 8.3 mg/dL (8.5-10.1) Triglycerides Level 135 mg/dL (0-150) Cholesterol Level 222 mg/dL (0-200) LDL Cholesterol, Calculated 148 mg/dL (0-100) VLDL Cholesterol, Calculated 27 mg/dL (0-40) Non-HDL Cholesterol Calculated 175 mg/dL (0-129) HDL Cholesterol 47 mg/dL (40-60) Cholesterol/HDL Ratio 4.7 Physical Exam HEENT: Neck Supple W Full Motion Chest: Symmetric LUNGS: Clear to Auscultation Heart: S1S2, RRR (SR with no significant ectopies overnight) Abdomen: Soft N/T Extremities: No Calf Tenderness Neurology: alert, oriented, follow commands Assessment Assessment 1. Atypical chest pain: Troponin sereies normal. likely MSK. Pt received ASA at urgent care yesterday. 2. Strong family hx of premature CAD: father at 30s and grandfather with father SCD at 50s 3. HLP: LDL 148, HDL 47 4. Hx of PIH: BP controlled 5. Hx of GERD Recommendations 1. CP free overnight. Continue with lidocaine, PPI. Warm pack PRN 2. TTE is unremarkable for significant changes. Treadmill MPI today to completely rule out ischemia given her significant risk factors 3. Repeat EKG this AM appears to be limb reversed. Will repeat EKG 4. Statin contraindicated, teratogenic, no contraception utilized. Will focus on diet modification and exercise regimen and reeval lipids per her PCP in 6-8 weeks 5. Dietitian consult. encouraged to follow up with her PCP. SAMIRA BARRY MD 10/18/16 6433: CARDIO Progress Notes Plan Plan Pt. seen and examined. Agree with above STAFF CONSULTANT note. No acute events overnight. No recurrent chest pain. Denies any dyspnea, palpitations. Normal exam. MPI negative. CTA negative. Ok to DC from CV perspective. Thanks for consult. MINOR BEAUCHAMP APRN October 18, 2016 11:22 SAMIRA BARRY MD October 18, 2016 21:59
[2016-10-18] MEDS ORDERED: REGADENOSON 0.4 MG/5 ML DISP.SYRIN. IV ONE (11:45)
[2016-10-18 12:11] LABS: NEG OBC UR NEG; POS OBC UR POS
[2016-10-18 15:00] VITALS: BP 120/85
--- NOTE | 2016-10-18 15:33 | RAD ---
APPROVED REPORT Test Type: Pharmacological Stress Nurse/Tech: Isabelle Raya RN Test Indications: chest pain Cardiac History: see ehr Medications: see ehr Medical History: see ehr Resting ECG: SR Resting Heart Rate: 91 bpm Resting Blood Pressure: 144/75mmHg Pretest Chest Pain: None Nurse/Tech Notes Lungs CTA, S1, S2 Consent: The procedure was explained to the patient in lay terms. Informed consent was witnessed. Glenn eout was entered into [employer]. History and Stress Test performed by [facility] [employer] Details Pharmacologic stress testing was performed using 0.4mg per 5ml of regadenoson given intravenously ove r 7-10 seconds. Stress Symptoms No chest pain or symptoms. POST EXERCISE Reason for Termination: Infusion complete Max HR: 142 bpm Max Blood Pressure: 154/70mmHg Blood Pressure response to exercise: Normal blood pressure response during stress. Chest Pain: No. Arrhythmia: No. ST Change: No. INTERPRETATION Stress EKG Conclusion: Baseline EKG showed sinus rhythm. No ischemic changes at peak stress. No arr hythmias. Imaging Protocol IMAGE PROTOCOL: Rest Tc-99m/stress Tc-99m 1 day Rest: Stress: Viability: Radiopharm.Tc99m [id number] Sestamibi Exgd12zHp 35mCi Duration 20min. 15min. Img Date 10/18/2016 10/18/2016 Inj-Img Ervt14cve. 60min. Rest Admin Site:IV - Left AntecubitalAdministrator:RT Henry (R)(N) Stress Admin Site: IV - Left AntecubitalAdministrator: MORRIS Pickett STRESS DATA End Diast. Vol.100.0mlAv. Heart Rate82.0bpm LVEDV index BSA2.0mlCardiac Output0.1L/min End Syst. Vol.30.0mlCO Index BSA5.7L/min LVESV index BSA1.0mlMyocardial Ghes639.0g Eject. Iflwcizm45.0% Stress Rates Pk. Fill Rate3.60EDV/secLVtime Pk. Fill 126.44msec Pk. Empty Rate4.17ESV/secLVtime Pk. Cbpnn822.03msec / Pk. Fill2.14EDV/sec Stress Scores Regional WT1.00Summed WT1.00 Regional WM0.00Summed WM0.00 Study quality was good. Left Ventricular size was Normal at Rest and Stress. Lung uptake was Normal. Left Ventricular ejection fraction is 70%. The rest and stress images show normal perfusion, normal contraction and thickening. LV Perf. Quant 17 Seg. SSS3.00 17 Seg. SRS4.00 17 Seg. SDS1.00 Stress Defect Extent (% LAD)3.10Rest Defect Extent (% LAD)2.50Rev. Defect Extent (% LAD)2.50 Stress Defect Extent (% LCX) 0.00Rest Defect Extent (% LCX)1.30Rev. Defect Extent (% LCX)0.00 Stress Defect Extent (% RCA)0.00Rest Defect Extent (% RCA)3.30Rev. Defect Extent (% RCA)0.00 Stress Defect Extent (% JOSE)2.80Rest Defect Extent (% JOSE)5.00Rev. Defect Extent (% JOSE)2.60 Conclusion 1. Regadenoson cardioisotope stress test did not show any evidence of ischemia or infarct. 2. Normal left ventricular systolic function with ejection fraction calculated at 70%. 3. Low risk for cardiac events.
[2016-10-18] MEDS: ENOXAPARIN 40 MG/0.4 ML SYRINGE. SQ SCH (16:00)
--- NOTE | 2016-10-18 17:09 | PDOC ---
PROGRESS NOTES Chief Complaint Chief Complaint CC: chest pain A/P Chest pain: ? pleuritic, ACS ruled out, ? PE Significant hx of family CAD HLP Plan Stress test pending. CTA chest r/o PE, pt c/o chest pressure, elephant sitting on her chest labs reviewed Vitals Vitals Vital Signs Date Time Temp Pulse Resp B/P (MAP) Pulse Ox O2 Delivery O2 Flow Rate FiO2 10/18/16 15:00 98.0 82 18 120/85 (97) 99 Room Air 98.0 Physical Exam General: Alert, Oriented X3, Cooperative, mild distress Heart: Regular rate (SR), Normal S1, Normal S2, No murmurs Abdomen: Soft, No tenderness Extremities: No cyanosis, No edema Skin: No breakdown, No significant lesion Labs LABS Laboratory Tests Test 10/17/16 17:45 10/18/16 03:35 10/18/16 10:12 Creatine Kinase 60 U/L (26-192) Troponin I Quantitative < 0.017 ng/mL (0.000-0.055) < 0.017 ng/mL (0.000-0.055) White Blood Count 6.3 x10^3/uL (4.0-11.0) Red Blood Count 4.90 x10^6/uL (3.50-5.40) Hemoglobin 13.9 g/dL (12.0-15.5) Hematocrit 40.9 % (36.0-47.0) Mean Corpuscular Volume 83 fL (79-100) Mean Corpuscular Hemoglobin 28 pg (25-35) Mean Corpuscular Hemoglobin Concent 34 g/dL (31-37) Red Cell Distribution Width 13.5 % (11.5-14.5) Platelet Count 236 x10^3/uL (140-400) Neutrophils (%) (Auto) 46 % (31-73) Lymphocytes (%) (Auto) 40 % (24-48) Monocytes (%) (Auto) 10 % (0-9) Eosinophils (%) (Auto) 4 % (0-3) Basophils (%) (Auto) 1 % (0-3) Neutrophils # (Auto) 2.9 x10^3uL (1.8-7.7) Lymphocytes # (Auto) 2.5 x10^3/uL (1.0-4.8) Monocytes # (Auto) 0.6 x10^3/uL (0.0-1.1) Eosinophils # (Auto) 0.3 x10^3/uL (0.0-0.7) Basophils # (Auto) 0.0 x10^3/uL (0.0-0.2) Sodium Level 142 mmol/L (136-145) Potassium Level 3.9 mmol/L (3.5-5.1) Chloride Level 105 mmol/L (98-107) Carbon Dioxide Level 26 mmol/L (21-32) Anion Gap 11 (6-14) Blood Urea Nitrogen 12 mg/dL (7-20) Creatinine 0.8 mg/dL (0.6-1.0) Estimated GFR (Cockcroft-Gault) 81.6 Glucose Level 80 mg/dL (70-99) Calcium Level 8.3 mg/dL (8.5-10.1) Triglycerides Level 135 mg/dL (0-150) Cholesterol Level 222 mg/dL (0-200) LDL Cholesterol, Calculated 148 mg/dL (0-100) VLDL Cholesterol, Calculated 27 mg/dL (0-40) Non-HDL Cholesterol Calculated 175 mg/dL (0-129) HDL Cholesterol 47 mg/dL (40-60) Cholesterol/HDL Ratio 4.7 Urine Test Negative (NEG) Comment Review of Relevant I have reviewed the following items jammie (where applicable) has been applied. Labs Laboratory Tests Test 10/17/16 09:39 10/17/16 10:00 10/17/16 10:40 10/17/16 12:35 Bedside Urine HCG, Qualitative Hcg negative (Negative) Urine Collection Type Void Urine Color Yellow Urine Clarity Clear Urine pH 7.5 Urine Specific [place] 1.010 Urine Protein Negative mg/dL (NEG-TRACE) Urine Glucose (UA) Negative mg/dL (NEG) Urine Ketones (Stick) Negative mg/dL (NEG) Urine Blood Negative (NEG) Urine Nitrite Negative (NEG) Urine Bilirubin Negative (NEG) Urine Urobilinogen Dipstick 0.2 mg/dL (0.2 mg/dL) Urine Leukocyte Esterase Trace (NEG) Urine RBC 0 /HPF (0-2) Urine WBC 0 /HPF (0-4) Urine Bacteria 0 /HPF (0-FEW) Urine Opiates Screen Neg (NEG) Urine Methadone Screen Neg (NEG) Urine Barbiturates Neg (NEG) Urine Phencyclidine Screen Neg (NEG) Urine Amphetamine/Methamphetamine Neg (NEG) Urine Benzodiazepines Screen Neg (NEG) Urine Cocaine Screen Neg (NEG) Urine Cannabinoids Screen Neg (NEG) Urine Ethyl Alcohol Neg (NEG) White Blood Count 6.1 x10^3/uL (4.0-11.0) Red Blood Count 4.98 x10^6/uL (3.50-5.40) Hemoglobin 13.9 g/dL (12.0-15.5) Hematocrit 42.0 % (36.0-47.0) Mean Corpuscular Volume 84 fL (79-100) Mean Corpuscular Hemoglobin 28 pg (25-35) Mean Corpuscular Hemoglobin Concent 33 g/dL (31-37) Red Cell Distribution Width 13.4 % (11.5-14.5) Platelet Count 228 x10^3/uL (140-400) Neutrophils (%) (Auto) 61 % (31-73) Lymphocytes (%) (Auto) 29 % (24-48) Monocytes (%) (Auto) 7 % (0-9) Eosinophils (%) (Auto) 2 % (0-3) Basophils (%) (Auto) 1 % (0-3) Neutrophils # (Auto) 3.7 x10^3uL (1.8-7.7) Lymphocytes # (Auto) 1.8 x10^3/uL (1.0-4.8) Monocytes # (Auto) 0.4 x10^3/uL (0.0-1.1) Eosinophils # (Auto) 0.1 x10^3/uL (0.0-0.7) Basophils # (Auto) 0.0 x10^3/uL (0.0-0.2) Sodium Level 143 mmol/L (136-145) Potassium Level 4.1 mmol/L (3.5-5.1) Chloride Level 106 mmol/L (98-107) Carbon Dioxide Level 29 mmol/L (21-32) Anion Gap 8 (6-14) Blood Urea Nitrogen 11 mg/dL (7-20) Creatinine 0.7 mg/dL (0.6-1.0) Estimated GFR (Cockcroft-Gault) 95.2 Glucose Level 87 mg/dL (70-99) Calcium Level 8.8 mg/dL (8.5-10.1) Total Bilirubin 0.4 mg/dL (0.2-1.0) Direct Bilirubin 0.1 mg/dL (0.0-0.2) Aspartate Amino Transf (AST/SGOT) 16 U/L (15-37) Alanine Aminotransferase (ALT/SGPT) 23 U/L (14-59) Alkaline Phosphatase 59 U/L (46-116) Troponin I Quantitative < 0.017 ng/mL (0.000-0.055) XA-Qxs-Q-Type Natriuretic Peptide 32 pg/mL (0-124) Total Protein 7.5 g/dL (6.4-8.2) Albumin 3.8 g/dL (3.4-5.0) Lipase 101 U/L (73-393) D-Dimer (Guerita) < 0.27 ug/mlFEU Test 10/17/16 17:45 10/18/16 03:35 10/18/16 10:12 Creatine Kinase 60 U/L (26-192) Troponin I Quantitative < 0.017 ng/mL (0.000-0.055) < 0.017 ng/mL (0.000-0.055) White Blood Count 6.3 x10^3/uL (4.0-11.0) Red Blood Count 4.90 x10^6/uL (3.50-5.40) Hemoglobin 13.9 g/dL (12.0-15.5) Hematocrit 40.9 % (36.0-47.0) Mean Corpuscular Volume 83 fL (79-100) Mean Corpuscular Hemoglobin 28 pg (25-35) Mean Corpuscular Hemoglobin Concent 34 g/dL (31-37) Red Cell Distribution Width 13.5 % (11.5-14.5) Platelet Count 236 x10^3/uL (140-400) Neutrophils (%) (Auto) 46 % (31-73) Lymphocytes (%) (Auto) 40 % (24-48) Monocytes (%) (Auto) 10 % (0-9) Eosinophils (%) (Auto) 4 % (0-3) Basophils (%) (Auto) 1 % (0-3) Neutrophils # (Auto) 2.9 x10^3uL (1.8-7.7) Lymphocytes # (Auto) 2.5 x10^3/uL (1.0-4.8) Monocytes # (Auto) 0.6 x10^3/uL (0.0-1.1) Eosinophils # (Auto) 0.3 x10^3/uL (0.0-0.7) Basophils # (Auto) 0.0 x10^3/uL (0.0-0.2) Sodium Level 142 mmol/L (136-145) Potassium Level 3.9 mmol/L (3.5-5.1) Chloride Level 105 mmol/L (98-107) Carbon Dioxide Level 26 mmol/L (21-32) Anion Gap 11 (6-14) Blood Urea Nitrogen 12 mg/dL (7-20) Creatinine 0.8 mg/dL (0.6-1.0) Estimated GFR (Cockcroft-Gault) 81.6 Glucose Level 80 mg/dL (70-99) Calcium Level 8.3 mg/dL (8.5-10.1) Triglycerides Level 135 mg/dL (0-150) Cholesterol Level 222 mg/dL (0-200) LDL Cholesterol, Calculated 148 mg/dL (0-100) VLDL Cholesterol, Calculated 27 mg/dL (0-40) Non-HDL Cholesterol Calculated 175 mg/dL (0-129) HDL Cholesterol 47 mg/dL (40-60) Cholesterol/HDL Ratio 4.7 Urine Test Negative (NEG) Laboratory Tests Test 10/17/16 17:45 10/18/16 03:35 10/18/16 10:12 Creatine Kinase 60 U/L (26-192) Troponin I Quantitative < 0.017 ng/mL (0.000-0.055) < 0.017 ng/mL (0.000-0.055) White Blood Count 6.3 x10^3/uL (4.0-11.0) Red Blood Count 4.90 x10^6/uL (3.50-5.40) Hemoglobin 13.9 g/dL (12.0-15.5) Hematocrit 40.9 % (36.0-47.0) Mean Corpuscular Volume 83 fL (79-100) Mean Corpuscular Hemoglobin 28 pg (25-35) Mean Corpuscular Hemoglobin Concent 34 g/dL (31-37) Red Cell Distribution Width 13.5 % (11.5-14.5) Platelet Count 236 x10^3/uL (140-400) Neutrophils (%) (Auto) 46 % (31-73) Lymphocytes (%) (Auto) 40 % (24-48) Monocytes (%) (Auto) 10 % (0-9) Eosinophils (%) (Auto) 4 % (0-3) Basophils (%) (Auto) 1 % (0-3) Neutrophils # (Auto) 2.9 x10^3uL (1.8-7.7) Lymphocytes # (Auto) 2.5 x10^3/uL (1.0-4.8) Monocytes # (Auto) 0.6 x10^3/uL (0.0-1.1) Eosinophils # (Auto) 0.3 x10^3/uL (0.0-0.7) Basophils # (Auto) 0.0 x10^3/uL (0.0-0.2) Sodium Level 142 mmol/L (136-145) Potassium Level 3.9 mmol/L (3.5-5.1) Chloride Level 105 mmol/L (98-107) Carbon Dioxide Level 26 mmol/L (21-32) Anion Gap 11 (6-14) Blood Urea Nitrogen 12 mg/dL (7-20) Creatinine 0.8 mg/dL (0.6-1.0) Estimated GFR (Cockcroft-Gault) 81.6 Glucose Level 80 mg/dL (70-99) Calcium Level 8.3 mg/dL (8.5-10.1) Triglycerides Level 135 mg/dL (0-150) Cholesterol Level 222 mg/dL (0-200) LDL Cholesterol, Calculated 148 mg/dL (0-100) VLDL Cholesterol, Calculated 27 mg/dL (0-40) Non-HDL Cholesterol Calculated 175 mg/dL (0-129) HDL Cholesterol 47 mg/dL (40-60) Cholesterol/HDL Ratio 4.7 Urine Test Negative (NEG) Medications Current Medications Nitroglycerin (Nitrostat) 0.4 mg PRN Q5MIN PRN SL CP RATING > 110 Last administered on 10/17/16t 10:44; Start 10/17/16 at 10:00; Stop 10/18/16 at 09:59 ; Status DC Ondansetron HCl (Zofran) 4 mg PRN Q8HRS PRN IV NAUSEA/VOMITING; Start 10/17/16 at 14:00; Stop 10/18/16 at 10:03; Status DC Acetaminophen (Tylenol) 650 mg PRN Q4HRS PRN PO FEVER; Start 10/17/16 at 14:00 ; Stop 10/18/16 at 10:03; Status DC Nitroglycerin (Nitrostat) 0.4 mg PRN Q5MIN PRN SL CHEST PAIN; Start 10/17/16 at 14:00; Stop 10/18/16 at 13:59; Status DC Acetaminophen (Tylenol) 650 mg PRN Q6HRS PRN PO FEVER; Start 10/17/16 at 15:15 Ondansetron HCl (Zofran) 4 mg PRN Q6HRS PRN IV NAUSEA/VOMITING; Start 10/17/16 at 15:15 Tramadol HCl (Ultram) 50 mg PRN Q6HRS PRN PO PAIN Last administered on 17:43; Start 10/17/16 at 15:15 Enoxaparin Sodium (Lovenox 40mg Syringe) 40 mg Q24H SQ Last administered on 17:43; Start 10/17/16 at 16:00 Pantoprazole Sodium (Protonix) 40 mg DAILYAC PO ; Start 10/18/16 at 07:30 Lidocaine (Lidoderm) 1 patch DAILY TD Last administered on 10/17/16 17:43; Start 10/17/16 at 16:00 Pantoprazole Sodium (Protonix) 40 mg DAILYAC PO ; Start 10/18/16 at 07:30; Status UNV Regadenoson (Lexiscan) 0.4 mg 1X ONCE IV Last administered on 10/18/16 11:58 ; Start 10/18/16 at 11:45; Stop 10/18/16 at 11:46; Status DC Vitals/I & O Vital Sign - Last 24 Hours 10/17/16 10/17/16 10/17/16 10/17/16 17:43 18:43 19:49 20:00 Temp 98.5 98.5 Pulse 78 Resp 14 18 B/P (MAP) 108/63 (78) Pulse Ox 98 98 O2 Delivery Room Air Room Air Room Air 10/17/16 10/18/16 10/18/16 10/18/16 22:30 02:16 08:00 08:00 Temp 98.3 98.2 98.1 98.3 98.2 98.1 Pulse 81 77 71 Resp 18 18 18 B/P (MAP) 108/69 (82) 107/65 (79) 115/63 (80) Pulse Ox 97 98 95 O2 Delivery Room Air Room Air Room Air Room Air 10/18/16 10/18/16 11:07 15:00 Temp 98.3 98.0 98.3 98.0 Pulse 70 82 Resp 18 18 B/P (MAP) 116/63 (80) 120/85 (97) Pulse Ox 97 99 O2 Delivery Room Air Room Air Intake and Output 10/17/16 10/17/16 10/18/16 15:00 23:00 07:00 Intake Total 700 ml 180 ml Output Total 1000 ml Balance -300 ml 180 ml ASHA BEAN MD October 18, 2016 17:09
[2016-10-18] MEDS ORDERED: IOHEXOL 300 MG/ML 75 ML VIAL IV ONE (17:30)
[2016-10-18] MEDS ORDERED: CONTRAST GIVEN MC PRN (17:30)
--- NOTE | 2016-10-18 18:49 | RAD ---
Exam performed: CT pulmonary angiogram of the chest with contrast. Date: 10/18/2016. Comparison: No relevant previous exams are available for comparison Indication: Chest pain for one week, negative stress testing today, shortness of air Technique: Contiguous helical acquisitions are obtained through the chest during intravenous administration 75 cc of Omnipaque 300. Sagittal and coronal MIP images are obtained and reviewed Findings: The structures at the thoracic inlet including both lobes of the thyroid gland appear normal. Pulmonary arterial opacification is adequate to evaluate for pulmonary embolus. There is no evidence for pulmonary embolism. The heart is normal in size. No pericardial effusion is seen. No mediastinal or hilar lymphadenopathy is seen. No infiltrates or pleural effusions are seen. No pulmonary nodules are detected. Upper abdominal structures appear unremarkable. Osseous structures appear intact. Impression: 1. Study is negative for pulmonary embolism. 2. No additional pulmonary abnormality seen. Electronically signed by: Celina Kay MD (10/18/2016 6:46 PM)
[2016-10-18 19:35] VITALS: BP 120/74
[2016-10-18 23:35] VITALS: BP 110/61
[2016-10-19 03:35] VITALS: BP 106/58
[2016-10-19 07:00] VITALS: BP 110/70
[2016-10-19] MEDS: PANTOPRAZOLE 40 MG TABLET.DR. PO SCH (07:30)
[2016-10-19] MEDS: LIDOCAINE (700MG/PATCH) PATCH. TD SCH (09:00)
[2016-10-19 11:00] VITALS: BP 113/71
--- NOTE | 2016-10-19 13:41 | PDOC ---
PROGRESS NOTES Chief Complaint Chief Complaint Chest pain Hyperlipidemia History of Present Illness History of Present Illness Patient was sitting in chair working on computer in [facility] when seen this am Asked if she could go home Discussed discharge with nurse Vitals Vitals Vital Signs Date Time Temp Pulse Resp B/P (MAP) Pulse Ox O2 Delivery O2 Flow Rate FiO2 10/19/16 11:00 99.2 75 16 113/71 (85) 98 Room Air 99.2 Physical Exam General: Alert, Oriented X3, Cooperative, mild distress Heart: Regular rate (SR), Normal S1, Normal S2, No murmurs Lungs: Clear, Other (no wheezing) Abdomen: Soft, No tenderness Extremities: No cyanosis, No edema Skin: No breakdown, No significant lesion Review of Systems Review of Systems General: denies weakness Card: denies chest pain GI: denies N/V/D/C Assessment and Plan Assessmemt and Plan Assessment: Chest pain Hyperlipidemia Plan: -Discharge ok today -Cardiac workup negative -Cardio ok to discharge -Recommend f/u with PCP in 6-8 weeks for reeval of lipids -Subspecialty input appreciated Problems: Comment Review of Relevant I have reviewed the following items jammie (where applicable) has been applied. Labs Laboratory Tests Test 10/17/16 17:45 10/18/16 03:35 10/18/16 10:12 Creatine Kinase 60 U/L (26-192) Troponin I Quantitative < 0.017 ng/mL (0.000-0.055) < 0.017 ng/mL (0.000-0.055) White Blood Count 6.3 x10^3/uL (4.0-11.0) Red Blood Count 4.90 x10^6/uL (3.50-5.40) Hemoglobin 13.9 g/dL (12.0-15.5) Hematocrit 40.9 % (36.0-47.0) Mean Corpuscular Volume 83 fL (79-100) Mean Corpuscular Hemoglobin 28 pg (25-35) Mean Corpuscular Hemoglobin Concent 34 g/dL (31-37) Red Cell Distribution Width 13.5 % (11.5-14.5) Platelet Count 236 x10^3/uL (140-400) Neutrophils (%) (Auto) 46 % (31-73) Lymphocytes (%) (Auto) 40 % (24-48) Monocytes (%) (Auto) 10 % (0-9) Eosinophils (%) (Auto) 4 % (0-3) Basophils (%) (Auto) 1 % (0-3) Neutrophils # (Auto) 2.9 x10^3uL (1.8-7.7) Lymphocytes # (Auto) 2.5 x10^3/uL (1.0-4.8) Monocytes # (Auto) 0.6 x10^3/uL (0.0-1.1) Eosinophils # (Auto) 0.3 x10^3/uL (0.0-0.7) Basophils # (Auto) 0.0 x10^3/uL (0.0-0.2) Sodium Level 142 mmol/L (136-145) Potassium Level 3.9 mmol/L (3.5-5.1) Chloride Level 105 mmol/L (98-107) Carbon Dioxide Level 26 mmol/L (21-32) Anion Gap 11 (6-14) Blood Urea Nitrogen 12 mg/dL (7-20) Creatinine 0.8 mg/dL (0.6-1.0) Estimated GFR (Cockcroft-Gault) 81.6 Glucose Level 80 mg/dL (70-99) Calcium Level 8.3 mg/dL (8.5-10.1) Triglycerides Level 135 mg/dL (0-150) Cholesterol Level 222 mg/dL (0-200) LDL Cholesterol, Calculated 148 mg/dL (0-100) VLDL Cholesterol, Calculated 27 mg/dL (0-40) Non-HDL Cholesterol Calculated 175 mg/dL (0-129) HDL Cholesterol 47 mg/dL (40-60) Cholesterol/HDL Ratio 4.7 Urine Test Negative (NEG) Medications Current Medications Nitroglycerin (Nitrostat) 0.4 mg PRN Q5MIN PRN SL CP RATING > 1/10 Last administered on 10/17/16t 10:44; Start 10/17/16 at 10:00; Stop 10/18/16 at 09:59 ; Status DC Ondansetron HCl (Zofran) 4 mg PRN Q8HRS PRN IV NAUSEA/VOMITING; Start 10/17/16 at 14:00; Stop 10/18/16 at 10:03; Status DC Acetaminophen (Tylenol) 650 mg PRN Q4HRS PRN PO FEVER; Start 10/17/16 at 14:00 ; Stop 10/18/16 at 10:03; Status DC Nitroglycerin (Nitrostat) 0.4 mg PRN Q5MIN PRN SL CHEST PAIN; Start 10/17/16 at 14:00; Stop 10/18/16 at 13:59; Status DC Acetaminophen (Tylenol) 650 mg PRN Q6HRS PRN PO FEVER; Start 10/17/16 at 15:15 ; Stop 10/19/16 at 13:00; Status DC Ondansetron HCl (Zofran) 4 mg PRN Q6HRS PRN IV NAUSEA/VOMITING; Start 10/17/16 at 15:15; Stop 10/19/16 at 13:00; Status DC Tramadol HCl (Ultram) 50 mg PRN Q6HRS PRN PO PAIN Last administered on 17:43; Start 10/17/16 at 15:15; Stop 10/19/16 at 13:00; Status DC Enoxaparin Sodium (Lovenox 40mg Syringe) 40 mg Q24H SQ Last administered on 16:00; Start 10/17/16 at 16:00; Stop 10/19/16 at 13:00; Status DC Pantoprazole Sodium (Protonix) 40 mg DAILYAC PO ; Start 10/18/16 at 07:30; Stop 10/19/16 at 13:00; Status DC Lidocaine (Lidoderm) 1 patch DAILY TD Last administered on 10/17/16 17:43; Start 10/17/16 at 16:00; Stop 10/19/16 at 13:00; Status DC Pantoprazole Sodium (Protonix) 40 mg DAILYAC PO ; Start 10/18/16 at 07:30; Status UNV Regadenoson (Lexiscan) 0.4 mg 1X ONCE IV Last administered on 10/18/16 11:58 ; Start 10/18/16 at 11:45; Stop 10/18/16 at 11:46; Status DC Iohexol (Omnipaque 300 Mg/ml) 75 ml 1X ONCE IV Last administered on 10/18/16 17:57; Start 10/18/16 at 17:30; Stop 10/18/16 at 17:31; Status DC Info (Do NOT chart on this entry -- for MONITORING) 1 each PRN DAILY PRN MC SEE COMMENTS; Start 10/18/16 at 17:30; Stop 10/19/16 at 13:00; Status DC Active Scripts Active No Active Prescriptions or Reported Medications Vitals/I & O Vital Sign - Last 24 Hours 10/18/16 10/18/16 10/18/16 10/18/16 15:00 19:35 20:00 23:35 Temp 98.0 98.2 98.4 98.0 98.2 98.4 Pulse 82 76 75 Resp 18 14 12 B/P (MAP) 120/85 (97) 120/74 (89) 110/61 (77) Pulse Ox 99 99 98 O2 Delivery Room Air Room Air Room Air Room Air 10/19/16 10/19/16 10/19/16 10/19/16 03:35 07:00 08:39 11:00 Temp 97.8 98.7 99.2 97.8 98.7 99.2 Pulse 66 77 75 Resp 11 16 16 B/P (MAP) 106/58 (74) 110/70 (83) 113/71 (85) Pulse Ox 98 100 98 O2 Delivery Room Air Room Air Room Air Room Air Intake and Output 10/18/16 10/18/16 10/19/16 15:00 23:00 07:00 Intake Total 800 ml 400 ml Output Total 1700 ml 700 ml Balance -900 ml -300 ml CAROLINE TAI III DO October 19, 2016 13:41
== END 2016-10-19 13:00 | disposition home or self-care (01) | DRG 313 ==
LOC: ER 09:41 → 2 SOUTH 13:25
PROVIDERS: ADMIT Internal Medicine; ATTEND Internal Medicine
DX: R07.89 Other chest pain (principal); E66.9 Obesity, unspecified; E78.00 Pure hypercholesterolemia, unspecified; E78.5 Hyperlipidemia, unspecified; I25.10 Atherosclerotic heart disease of native coronary artery without angina pectoris; K21.9 Gastro-esophageal reflux disease without esophagitis; O13.9 Gestational [pregnancy-induced] hypertension without significant proteinuria, unspecified trimester; Z82.49 Family history of ischemic heart disease and other diseases of the circulatory system; Z87.891 Personal history of nicotine dependence; Z88.1 Allergy status to other antibiotic agents; Z88.2 Allergy status to sulfonamides; Z88.8 Allergy status to other drugs, medicaments and biological substances; Z68.31 Body mass index [BMI] 31.0-31.9, adult
CPT/HCPCS: 36415; 71020; 71275; 78452; 80048; 80061; 80076; 81001; 81025; 82550; 83690; 83880; 84484; 85027; 85379; 93005; 93017; 93306; 96374; 96375; 96376; A9500; G0481; J1650; J2785; Q9967; 99285-25